=== PATIENT | female | born 1945 | race Caucasian/White ===

== ENCOUNTER 2016-07-03 11:23 | Outpatient (CLI) | payer OTHER ==
[2015-06-14 15:59] VITALS: BP 185/114
[2016-07-03 12:32] LABS: eGFR (African) > 60; eGFR (Non-African) > 60
== END 2016-07-03 11:24 ==
LOC: LAB 11:23
PROVIDERS: ATTEND Internal Medicine Cardiovascular Disease
DX: R60.0 Localized edema (principal)
CPT/HCPCS: 36415; 80053

== ENCOUNTER 2016-07-15 11:19 | Outpatient (CLI) | payer OTHER ==
[2015-06-14 15:59] VITALS: BP 185/114
--- NOTE | 2016-07-16 08:36 | Diagnostic Imaging Report ---
[facility] [id number] [facility].[address] [address] Report Submission Date: Jul 15, 2016 2:02:36 PM TEXTILES PRINTER Patient Study Name: ELYSSA CUTLER Date: Jul 15, 2016 11:42:27 AM TEXTILES PRINTER Modality Type: CR Gender: F Description: LOWER EXTREMITY : 45 Institution: [facility] Physician GORDO POLLOCK (SKY DIVER) - OP Right foot-three views CLINICAL HISTORY: Follow-up fracture of the 2nd toe. FINDINGS: Examination right foot in plantar, lateral and oblique views demonstrates degenerative changes with narrowing of the interphalangeal joints and the 1st metatarsophalangeal joint. Cyst formation is evident in the base of the 3rd metatarsal and in the lateral cuneiform also consistent with degenerative change. There is deformity of 2nd proximal phalangeal head consistent with fracture. This results in slight lateral displacement and angulation of the 2nd middle phalanx relative to the proximal phalanx. IMPRESSION: Posttraumatic changes in the 2nd proximal phalangeal head. Degenerative changes. Electronically signed on Jul 15, 2016 2:02:36 PM TEXTILES PRINTER by: Darrel WEATHERS
== END 2016-07-15 11:20 ==
LOC: RAD 11:19
PROVIDERS: ATTEND Nurse Practitioner Family
DX: M79.674 Pain in right toe(s) (principal)
CPT/HCPCS: 73630

== ENCOUNTER 2016-10-24 08:09 | Outpatient (CLI) | payer OTHER ==
[2015-06-14 15:59] VITALS: BP 185/114
[2016-10-24 09:35] LABS: eGFR (African) > 60; eGFR (Non-African) > 60
== END 2016-10-24 08:10 ==
LOC: LAB 08:09
PROVIDERS: ATTEND Internal Medicine Cardiovascular Disease
DX: R60.0 Localized edema (principal); R06.02 Shortness of breath
CPT/HCPCS: 36415; 80048

== ENCOUNTER 2016-12-06 08:15 | Outpatient (CLI) | payer OTHER ==
[2015-06-14 15:59] VITALS: BP 185/114
[2016-12-06 08:44] LABS: BASOPHILS % 0.7 (0.0-1.5); EOSINOPHILS % 3.6 % (0.0-6.8); MEAN CORPUSCULAR HEMOGLOBIN 33.8 pg (28.0-34.0); MEAN CORPUSCULAR VOLUME 103.4 fl (80.0-100.0); MONOCYTES % 5.4 % (0.0-11.0); NEUTROPHILS # 3.1 # k/uL (1.4-7.7)
== END 2016-12-06 08:16 ==
LOC: LAB 08:15
PROVIDERS: ATTEND Nurse Practitioner Family
DX: D75.89 Other specified diseases of blood and blood-forming organs (principal)
CPT/HCPCS: 36415; 82607; 82746; 85025

== ENCOUNTER 2016-12-11 08:14 | Outpatient (CLI) | payer OTHER ==
[2015-06-14 15:59] VITALS: BP 185/114
[2016-12-11 09:01] LABS: eGFR (African) > 60; eGFR (Non-African) > 60
== END 2016-12-11 08:15 ==
LOC: LAB 08:14
PROVIDERS: ATTEND Internal Medicine Cardiovascular Disease
DX: R06.02 Shortness of breath (principal); R60.0 Localized edema
CPT/HCPCS: 36415; 80048

== ENCOUNTER 2017-01-30 08:38 | Outpatient (CLI) | payer OTHER ==
[2015-06-14 15:59] VITALS: BP 185/114
[2017-01-30 09:19] LABS: eGFR (African) > 60; eGFR (Non-African) > 60
== END 2017-01-30 08:40 ==
LOC: LAB 08:38
PROVIDERS: ATTEND Internal Medicine Cardiovascular Disease
DX: R06.02 Shortness of breath (principal); R60.0 Localized edema
CPT/HCPCS: 36415; 80048

== ENCOUNTER 2017-07-18 12:24 | Outpatient (CLI) | payer MEDICARE, OTHER ==
[2015-06-14 15:59] VITALS: BP 185/114
[2017-07-18 13:14] LABS: eGFR (African) > 60; eGFR (Non-African) > 60
[2017-07-22 00:11] LABS: PROTEIN mg/dL 4 mg/dL
== END 2017-07-18 12:25 ==
LOC: LAB 12:24
PROVIDERS: ATTEND Internal Medicine Cardiovascular Disease
DX: I48.0 Paroxysmal atrial fibrillation (principal); I10 Essential (primary) hypertension
CPT/HCPCS: 36415; 80053; 81050; 83880; 84156

== ENCOUNTER → 2017-07-25 | Outpatient (CLI) | payer MEDICARE, OTHER ==
[2015-06-14 15:59] VITALS: BP 185/114
[2017-07-25 12:47] LABS: eGFR (African) > 60; eGFR (Non-African) > 60
== END ==
LOC: LAB 11:36
PROVIDERS: ATTEND Internal Medicine Cardiovascular Disease
DX: R06.02 Shortness of breath (principal); R53.83 Other fatigue; R60.0 Localized edema
CPT/HCPCS: 36415; 80048

== ENCOUNTER 2017-11-03 10:39 | Outpatient (CLI) | payer MEDICARE, OTHER ==
[2015-06-14 15:59] VITALS: BP 185/114
[2017-11-03 11:19] LABS: eGFR (African) > 60; eGFR (Non-African) > 60
== END 2017-11-03 10:40 ==
LOC: LAB 10:39
PROVIDERS: ATTEND Internal Medicine Cardiovascular Disease
DX: R06.02 Shortness of breath (principal); R60.0 Localized edema
CPT/HCPCS: 36415; 80048

== ENCOUNTER 2018-04-28 14:01 | Outpatient (CLI) | payer MEDICARE, OTHER ==
[2015-06-14 15:59] VITALS: BP 185/114
--- NOTE | 2018-04-28 15:23 | Diagnostic Imaging Report ---
GORDO POLLCOK (LATISHA) - OP [facility] [address] [address] Report Submission Date: Apr 28, 2018 2:49:40 PM CDT Patient Study Name: ELYSSA CUTLER Date: Apr 28, 2018 2:20:27 PM CDT Modality Type: DX Gender: F Description: CHEST : 45 Institution: [facility] Physician: GORDO POLLOCK (LATISHA) - OP Examination: PA and lateral chest. History: Evaluate lung bartlett. SOA, COUGH (Hx) Comparison exam: None available. Findings: PA and lateral views of the chest demonstrates a prominent cardiac and mediastinal silhouette. Vascular calcifications involving the aortic arch. Chronic interstitial changes. No focal infiltrate. Scarring/density right lower lung. No blunting of the costophrenic margins. Articular degenerative changes. Impression: No acute appearing pulmonary process. Scarring/density right lower lung. Cardiomegaly. Electronically signed on Apr 28, 2018 2:49:40 PM CDT by: Aravind WEATHERS
== END 2018-04-28 14:03 ==
LOC: RAD 14:01
PROVIDERS: ATTEND Nurse Practitioner Family
DX: R05 Cough (principal); R06.02 Shortness of breath
CPT/HCPCS: 71046

== ENCOUNTER 2018-09-07 09:29 | Outpatient (CLI) | payer MEDICARE, OTHER ==
[2015-06-14 15:59] VITALS: BP 185/114
[2018-09-07 10:12] LABS: eGFR (Non-African) > 60
== END 2018-09-07 09:32 ==
LOC: LAB 09:29
PROVIDERS: ATTEND Internal Medicine Pulmonary Disease
DX: I27.20 Pulmonary hypertension, unspecified (principal); I50.812 Chronic right heart failure
CPT/HCPCS: 36415; 80053; 83880